=== PATIENT | male | born 1985 | race Caucasian/White ===

== ENCOUNTER 2020-02-21 01:50 | Emergency (ER) | payer MEDICARE ==
[2020-02-21] MEDS ORDERED: Ondansetron ODT 4 MG TAB ONE (02:08)
[2020-02-21] MEDS ORDERED: Boostrix 0.5 ML (Tdap) VIAL ONE (02:52)
[2020-02-21] MEDS ORDERED: Lidocaine 1% (PF) 30 ML VIAL ONE (03:35)
--- NOTE | 2020-02-21 08:15 | RAD ---
4 views of the right third fourth and fifth fingers: 02/21/2020 COMPARISON: None HISTORY: Fall, laceration FINDINGS: No radiopaque foreign body or subcutaneous gas. No acute displaced fracture or evidence of dislocation. IMPRESSION: No radiopaque foreign body or displaced fracture/dislocation. Recommend follow-up in 7-10 days if symptoms persist.
== END 2020-02-21 04:57 | disposition home or self-care (01) ==
LOC: ERS 01:50
DX: S56.127A Laceration of flexor muscle, fascia and tendon of right little finger at forearm level, initial encounter (principal); S61.214A Laceration without foreign body of right ring finger without damage to nail, initial encounter; F17.210 Nicotine dependence, cigarettes, uncomplicated; W25.XXXA Contact with sharp glass, initial encounter
CPT/HCPCS: 12001; 90471; 90715; J2001; Q0162